=== PATIENT | female | born 1980 | race Caucasian/White ===

== ENCOUNTER 2017-07-08 06:00 | Inpatient (IN) ==
[2017-07-08] MEDS ORDERED: LIDOCAINE 1% (10mg/ml) 2mL INJ PF SDV ID PRN (06:10)
[2017-07-08] MEDS ORDERED: METHYLERGONOVINE 0.2 MG/ML INJECTION IM PRN (06:10)
[2017-07-08] MEDS ORDERED: CALCIUM CARBONATE Chewable 500mg TABLET PO PRN (06:10)
[2017-07-08] MEDS ORDERED: MAG-AL + SIM ORAL LIQUID 30ml PO PRN (06:10)
[2017-07-08] MEDS ORDERED: CARBOPROST 250 MCG/ML INJECTION IM PRN (06:10)
[2017-07-08] MEDS ORDERED: ACETAMINOPHEN 500 MG TABLET PO PRN (06:10)
[2017-07-08] MEDS: LR 1,000 ML IV SCH ×3 (06:41→12:08)
[2017-07-08] MEDS ORDERED: OXYTOCIN DRIP 30 UNIT/500 ML ML IV PRN (07:00)
[2017-07-08] MEDS ORDERED: D5LR 1,000 ML IV PRN (07:00)
[2017-07-08 07:32] VITALS: BMI 30.6
--- NOTE | 2017-07-08 08:47 | Anesthesia Preoperative Report ---
Anesthesia Epidural/Spinal Rec - Date and Time Date: 07/08/17 Procedure: Labor Epidural Plan: Epidural - Vital Signs Vital Signs: Temperature 97.6 F 07/08/17 06:52 Pulse Rate 79 07/08/17 06:52 Respiratory Rate 18 07/08/17 06:52 Blood Pressure 102/70 07/08/17 06:52 Pulse Oximetry 98 07/08/17 06:52 Oxygen Delivery Method Room Air /Para: P:3 - Medictaions & Allergies Inpatient Medications: Current Medications Acetaminophen (Tylenol) 500 - 1,000 mg PO Q4H PRN PRN Reason: Pain Al Hydroxide/Mg Hydroxide (Maalox Plus) 30 ml PO Q3H PRN PRN Reason: Indigestion Calcium Carbonate (Tums) 500 - 1,000 mg PO Q2H PRN PRN Reason: Indigestion Carboprost Tromethamine (Hemabate) 250 mcg IM O PRN PRN Reason: .Downtime Dextrose/Lactated Ringer's (Dextrose 5%-Lactated Ringers) 1,000 mls @ 125 mls/ hr IV .Q8H PRN PRN Reason: Labor Last Admin: 07/08/17 06:42 Dose: 125 mls/hr Lactated Ringer's (Lactated Ringers) 1,000 mls @ 0 mls/hr IV .Q0M EMILY PRN Reason: Per Protocol Last Admin: 07/08/17 06:41 Dose: 125 mls/hr Oxytocin (Pitocin Drip) 30 unit in 500 mls @ 2 mls/hr IV .Q24H PRN; Protocol PRN Reason: Induction/Augmentation Last Admin: 07/08/17 06:42 Dose: 2 mls/hr Lidocaine HCl (Xylocaine-Mpf 1% Vial) 0.2 mg ID O PRN PRN Reason: IV Start Methylergonovine Maleate (Methergine) 0.2 mg IM O PRN Misoprostol (Cytotec) 800 mcg GA ONCE PRN Allergies/Adverse Reactions: Allergies Allergy/AdvReac Type Severity Reaction Status Date / Time No Known Allergies Allergy Unverified 09/12/14 05:56 - Home Medications Home Medications: Home Medications Medication Instructions Recorded Confirmed Type Docosahexanoic Acid [ Dha] 1 cap PO DAILY #0 cap 08/24/14 History Tylenol 06/23/17 History - Medical History Respiratory: DENIES: Asthma, Bronchitis, Chronic Obstructive Pulmonary Disease (COPD), Dyspnea, Orthopnea, Pulmonary Embolism, Pneumonia, Upper Respiratory Infection, Pulmonary Edema, Sleep Apnea, Tuberculosis, Other Cardiovascular: DENIES: Abnormal EKG, Angina, Arrhythmia, Congestive Heart Failure, Coronary Artery Disease, Heart Murmur, Hypertension, Hypotension, High Cholesterol, Myocardial Infarction, Rheumatic Fever, Valvular Heart Disease, Other Gastrointestional: Reports: Gastroesophageal Reflux Disease (occasional during ) Neuro/Musculoskeletal: Reports: Paresthesia (right arm. neck pain/numbness to right hand) Renal/Endocrine: DENIES: Diabetes Mellitus Type 1, Diabetes Mellitus Type 2, Renal Failure, Dialysis, Thyroid Disease, Weight Loss, Weight Gain, Other Other History: Reports: Now - Surgical History Anesthesia Reactions: None Hx Family Anesthesia Reaction: No History of Motion Sickness: No - Social History Smoking Status: Never smoker Substance Use Type: does not use Alcohol Intake Frequency: does not drink - Pertinent Findings Lab Data: CBC and BMP 07/08/17 06:28 EKG Rhythm: Normal Sinus Rhythm - Physical Exam Respiratory Exam: lungs clear, bilateral breath sounds equal Cardiovascular Exam: regular rate and rhythm, no murmur - Airway Assessment Mallampati Score: II TMD: 3 Fingerbreadths Neck Extension: good Overall Assessment: may be difficult intubation - ASA ASA Score: 2 - Discussion Discussion: Discussed risks/options/alternatives of anesthesia and questions answered. Patient consents. Nursing pain assessment noted. Anesthesia Discussion: spouse Attestation Statement: Prior to the delivery of any anesthetic medication, I examined the patient, developed the plan, obtained the patient's consent and discussed the risk and benefits of the procedure with the patient/guardian.
[2017-07-08] MEDS ORDERED: ROPIVACAINE 1% 10MG/ML INJ 200 MG, SUFentanil 50 MCG in NS 100 ML EPI PRN (11:09)
[2017-07-08] MEDS ORDERED: DiphenhydrAMINE 50 MG/ML INJECTION IVP PRN (11:09)
[2017-07-08] MEDS ORDERED: NALOXONE 0.4 MG/ML INJECTION IVP PRN (11:09)
[2017-07-08] MEDS ORDERED: ONDANSETRON 4 MG/2 ML INJECTION IVP PRN (11:09)
[2017-07-08] MEDS ORDERED: LIDOCAINE 2%/EPI 1:200,000 20ml SDV PF ONE (12:01)
[2017-07-08] MEDS ORDERED: DiphenhydrAMINE 25 MG CAPSULE PO PRN (14:21)
[2017-07-08] MEDS ORDERED: SALINE FLUSH 10ml SYRINGE IVF PRN (14:21)
[2017-07-08] MEDS ORDERED: HYDROCORTISONE 2.5% CREAM 30gm RECTALLY PRN (14:21)
[2017-07-08] MEDS ORDERED: HYDROCODONE/APAP 5mg/325mg TABLET PO PRN (14:21)
[2017-07-08] MEDS ORDERED: OXYTOCIN DRIP 30 UNIT/500 ML ML IV SCH (14:21)
[2017-07-08] MEDS: IBUPROFEN 800 MG TABLET PO PRN ×2 (15:12→22:33)
[2017-07-08 19:32] VITALS: RESP 14
[2017-07-09] MEDS: IBUPROFEN 800 MG TABLET PO PRN ×2 (06:29→13:50)
--- NOTE | 2017-07-09 06:47 | Labor and Delivery Note ---
DATE: 07/08/2017 DELIVERY NOTE Juanis is a 36-year-old, 5, para 3, at 39 weeks 2 days gestational age who was brought in for a logistical Pitocin induction this morning. Her membranes were ruptured artificially returning clear fluids. She received an epidural. She progressed nicely throughout labor. She pushed for a short period of time and rotated baby from ROP to WESLY. She had a spontaneous vaginal delivery of a viable male , Apgars 8/9, weight 3551 g, name "Dary." Baby was vigorous at delivery, so he was placed on mom's abdomen and the cord clamping was delayed for more than 2 minutes. The placenta delivered spontaneously. She had a small right first-degree perineal laceration that was bleeding, so it was repaired with 2-0 Vicryl. Mom and baby tolerated the delivery well. GUERO
[2017-07-09] MEDS ORDERED: DOCUSATE CALCIUM 240 MG CAPSULE PO SCH (09:00)
--- NOTE | 2017-07-09 09:20 | Anesthesia Postoperative Note ---
- Date and Time Date: 07/09/17 Time: 09:20 - Status Patient Participated in Evaluation: Patient Participated in Person Vital Signs: Temperature 97.9 F 07/09/17 06:20 Pulse Rate 66 07/09/17 06:20 Respiratory Rate 14 07/09/17 06:20 Blood Pressure 103/65 07/09/17 06:20 Pulse Oximetry 100 07/09/17 06:20 Oxygen Delivery Method Room Air Respiratory Function: Airway Patent Cardiovascular Function: Regular Pulse EKG Rhythm: Normal Sinus Rhythm Mental Status: Alert and Oriented Pain Intensity: 0 Hydration: Taking PO Fluids Complications During Recover: None Apparent - Follow-Up Instructions Instructions: Per Surgeon
[2017-07-09 10:19] VITALS: BP 97/56; PULSE 70; TEMP 98.3; O2SAT 98
--- NOTE | 2017-07-09 11:41 | OB/GYN Progress Note ---
OB-PP Progress Note - General PPD1 Maternal Group B Strep: Negative Maternal blood type: A+ Maternal Rubella Status: Immune - Subjective Date: 07/09/17 Lochia: Minimal Pain: contolled Voiding: voiding - Objective Vital Signs: Last Vital Signs Temp 98.3 F 07/09/17 10:10 Pulse 70 07/09/17 10:10 Resp 14 07/09/17 10:10 BP 97/56 07/09/17 10:10 Pulse Ox 98 07/09/17 10:10 Urine Output: good Abdomen: fundus firm, non-tender Extremities: non-tender - Assessment Assessment: - Plan Plan: routine care, discharge home, continue PNV
--- NOTE | 2017-07-09 11:44 | Discharge Instructions ---
Discharge Plan - Med Rec/Dispo Prescriptions: New Ibuprofen [Motrin] 800 mg PO Q8H PRN #30 tablet PRN Reason: Pain Hydrocodone/APAP 5/325 [Christmas 5/325] 1 - 2 tab PO Q4H PRN #20 tablet PRN Reason: Pain Continue Docosahexanoic Acid [ Dha] 1 cap PO DAILY #0 cap Tylenol Discharge Instructions/Outpatient Orders: Final Provider Discharge Instructions Location: Determined By Patient - Disposition 01 Discharged Home, Self-Care
== END 2017-07-09 14:25 | disposition home or self-care (01) | DRG 775 ==
LOC: MC 06:00
PROVIDERS: ADMIT Obstetrics & Gynecology; ATTEND Obstetrics & Gynecology